=== PATIENT | female | born 1980 | race Caucasian/White ===

== ENCOUNTER 2020-05-30 10:11 | Emergency (ER) | payer SELFPAY | END 2020-05-30 11:19 | disposition home or self-care (01) | LOC: NAV ERS 10:11 | DX: K02.9 Dental caries, unspecified (principal); I10 Essential (primary) hypertension; F17.210 Nicotine dependence, cigarettes, uncomplicated; Z79.899 Other long term (current) drug therapy | CPT/HCPCS: 99282 ==